=== PATIENT | female | born 1960 | race Caucasian/White ===

== ENCOUNTER 2020-10-29 20:40 | Emergency (ER) | payer BC ==
[~2020-10-29] VITALS: Ht 175.3 cm; Wt 98.3 kg
--- NOTE | 2020-10-29 21:27 | REPVR ---
PROCEDURE INFORMATION: Exam: CT Head Without Contrast Exam date and time: 10/29/2020 9:10 PM Age: 60 years old Clinical indication: Weakness, extremity; Additional info: CVA symptoms TECHNIQUE: Imaging protocol: Computed tomography of the head without contrast. Radiation optimization: All CT scans at this facility use at least one of these dose optimization techniques: automated exposure control; mA and/or kV adjustment per patient size (includes targeted exams where dose is matched to clinical indication); or iterative reconstruction. Other technique: STROKE PROTOCOL was implemented. COMPARISON: No relevant prior studies available. FINDINGS: Brain: There is mild diffuse cerebellar atrophy. Cerebral ventricles: No ventriculomegaly. Paranasal sinuses: Inflammatory changes in the left sphenoid sinus. Mastoid air cells: Visualized mastoid air cells are well aerated. Bones/joints: There is hyperostosis frontalis interna. Soft tissues: Unremarkable. IMPRESSION: 1. There is mild diffuse cerebellar atrophy. 2. Inflammatory changes in the left sphenoid sinus. 3. No acute intracranial findings. ASSESSMENT: ASPECTS ([place] Stroke Program Early CT Score) is 10. Electronically signed by: Domingo Smith On 10/29/2020 21:26:54 PM
[2020-10-29 21:29] LABS: BASO # 0.1 10^3/uL (0.0-0.2); BASO % 0.8 % (0.0-1.0); EOS # 0.2 10^3/uL (0.0-0.5); EOS % 2.1 % (0.0-3.0); HEMATOCRIT 48.4 % (36.0-47.0); LYMPH # 3.5 10^3/uL (1.5-5.0); LYMPH % 33.6 % (24.0-44.0); MEAN CORPUSCULAR HEMOGLOBIN 29.9 pg (27.0-33.0); MEAN CORPUSCULAR HGB CONC 33.1 g/dl (32.0-36.5); MEAN CORPUSCULAR VOLUME 90.5 fl (80.0-96.0); MONO # 0.8 10^3/uL (0.0-0.8); MONO % 7.6 % (2.0-8.0); NEUTROPHILS # 5.8 10^3/uL (1.5-8.5); NEUTROPHILS % 55.7 % (36.0-66.0); PLATELET COUNT, AUTOMATED 297 10^3/uL (150-450); RED BLOOD COUNT 5.35 10^6/uL (4.00-5.40); WHITE BLOOD COUNT 10.4 10^3/uL (4.0-10.0)
--- NOTE | 2020-10-29 21:38 | REPVR ---
PROCEDURE INFORMATION: Exam: XR Chest Exam date and time: 10/29/2020 9:24 PM Age: 60 years old Clinical indication: Other: CVA TECHNIQUE: Imaging protocol: XR of the chest. Views: 1 view. COMPARISON: No relevant prior studies available. FINDINGS: Lungs: Unremarkable. No consolidation. Pleural spaces: Unremarkable. No pleural effusion. No pneumothorax. Heart/Mediastinum: Unremarkable. No cardiomegaly. Bones/joints: The spine demonstrates mild degenerative changes. IMPRESSION: No acute findings. Electronically signed by: Domingo Smith On 10/29/2020 21:37:54 PM
[2020-10-29 21:39] LABS: PARTIAL THROMBOPLASTIN TIME 27.8 SECONDS (24.2-38.5)
[2020-10-29] MEDS ORDERED: ALTEPLASE 100MG VIAL IV ONE (21:45)
[2020-10-29] MEDS ORDERED: ALTEPLASE RECOMBINANT IV ONE (21:45)
[2020-10-29 22:00] VITALS: BP 151/93
[2020-10-29 22:00] LABS: CK-MB VALUE MASS < 1.0 NG/ML (<3.6); CPK CREATINE PHOSPHOKINASE 44 U/L (26-192); MB/CK RELATIVE INDEX 2.27 (< OR =4); TROPONIN I < 0.02 NG/ML (< 0.10)
[2020-10-29] MEDS ORDERED: CETI-36 PO (22:11)
[2020-10-29] MEDS ORDERED: ARIP1TAB6 PO (22:11)
[2020-10-29] MEDS ORDERED: ATOR1TAB21 PO (22:11)
[2020-10-29] MEDS ORDERED: SING10TA32 PO (22:11)
[2020-10-29] MEDS ORDERED: OMEP40CA4 PO (22:11)
[2020-10-29] MEDS ORDERED: LEXA1TAB2 PO (22:11)
[2020-10-29] MEDS ORDERED: ISOVUE-370 76% 100ML VIAL As Ordered ONE (22:23)
[2020-10-29 22:45] LABS: INR 0.95; PROTHROMBIN TIME 12.9 SECONDS (12.5-14.3)
[2020-10-29] MEDS ORDERED: SODIUM CHLORIDE 0.9% 50 ML IV ONE (22:45)
[2020-10-29] MEDS ORDERED: GASTROGRAFIN SOLUTION 30ML (Q9963) PEG ONE (23:00)
[2020-10-29 23:01] LABS: RSV AMPLIFICATION NEGATIVE (NEGATIVE)
--- NOTE | 2020-10-29 23:12 | REPVR ---
PROCEDURE INFORMATION: Exam: CT Angiography Head With Contrast, Arteriography Exam date and time: 10/29/2020 10:32 PM Age: 60 years old Clinical indication: Other: CVA TECHNIQUE: Imaging protocol: Computed tomography angiography of the head with contrast. Exam focused on the arteries. 3D rendering (Not supervised by radiologist): MIP and/or 3D reconstructed images were created by the technologist. Radiation optimization: All CT scans at this facility use at least one of these dose optimization techniques: automated exposure control; mA and/or kV adjustment per patient size (includes targeted exams where dose is matched to clinical indication); or iterative reconstruction. Contrast material: ISOVUE 370; Contrast volume: 100 ml; Contrast route: INTRAVENOUS (IV); COMPARISON: CT Head without contrast 10/29/2020 9:06 PM FINDINGS: ANTERIOR CIRCULATION: Right internal carotid artery: Unremarkable. Intracranial segment is patent with no significant stenosis. No aneurysm. Right middle cerebral artery: Unremarkable. No occlusion or significant stenosis. No aneurysm. Right anterior cerebral artery: Unremarkable. No occlusion or significant stenosis. No aneurysm. Left internal carotid artery: Unremarkable. Intracranial segment is patent with no significant stenosis. No aneurysm. Left middle cerebral artery: Unremarkable. No occlusion or significant stenosis. No aneurysm. Left anterior cerebral artery: Unremarkable. No occlusion or significant stenosis. No aneurysm. POSTERIOR CIRCULATION: Right vertebral artery: Unremarkable. No occlusion or significant stenosis. No aneurysm. Left vertebral artery: Unremarkable. No occlusion or significant stenosis. No aneurysm. Basilar artery: Unremarkable. No occlusion or significant stenosis. No aneurysm. Right posterior cerebral artery: Large patent right posterior communicating artery which is sole supply to the right posterior cerebral artery which is otherwise unremarkable. Left posterior cerebral artery: Patent left posterior communicating artery which is dominant supply to the left posterior cerebral artery which is otherwise unremarkable. Brain: No definite mass, mass effect, or midline shift. Cerebral ventricles: No ventriculomegaly. Bones/joints: Unremarkable. No acute fracture. Soft tissues: Unremarkable. Paranasal sinuses: Sphenoid sinus mucosal thickening. IMPRESSION: 1. Mild sphenoid sinus disease. 2. Otherwise negative CTA head. No significant stenosis and no occlusion. Electronically signed by: Jose Walls On 10/29/2020 23:12:47 PM
--- NOTE | 2020-10-29 23:15 | REPVR ---
PROCEDURE INFORMATION: Exam: CT Angiography Neck With Contrast Exam date and time: 10/29/2020 10:32 PM Age: 60 years old Clinical indication: Other: CVA TECHNIQUE: Imaging protocol: Computed tomography angiography of the neck with contrast. 3D rendering (Not supervised by radiologist): MIP and/or 3D reconstructed images were created by the technologist. Radiation optimization: All CT scans at this facility use at least one of these dose optimization techniques: automated exposure control; mA and/or kV adjustment per patient size (includes targeted exams where dose is matched to clinical indication); or iterative reconstruction. Contrast material: ISOVUE 370; Contrast volume: 100 ml; Contrast route: INTRAVENOUS (IV); COMPARISON: CT Head without contrast 10/29/2020 9:06 PM FINDINGS: Right common carotid artery: No stenosis. No dissection or occlusion. Right internal carotid artery: Tortuosity of the distal right extracranial internal carotid artery is noted. No stenosis. No dissection or occlusion. Right external carotid artery: No occlusion or stenosis of the origin. Left common carotid artery: No stenosis. No dissection or occlusion. Left internal carotid artery: No stenosis of the extracranial segment. No dissection or occlusion. Left external carotid artery: No occlusion or stenosis of the origin. Right vertebral artery: No stenosis. No dissection or occlusion. Left vertebral artery: No stenosis. No dissection or occlusion. Soft tissues: Normal. No significant soft tissue swelling. Bones/joints: No acute fracture. Lungs: Slight biapical interstitial coarsening. IMPRESSION: Negative CTA neck. No significant stenosis and no occlusion. REFERENCES: NASCET CRITERIA. The degree of internal carotid artery stenosis is based on NASCET criteria. Normal is no stenosis. Mild is less than 50% stenosis. Moderate is 50-69% stenosis. Severe is 70% to 99% stenosis. Total occlusion is no detectable patent lumen. Electronically signed by: Jose Walls On 10/29/2020 23:15:05 PM
--- NOTE | 2020-10-30 16:53 | ECGEPIP ---
[facility] - ED Test Date: 2020-10-29 Pat Name: CARISSA THOMAS Department: Room: - Gender: Female Intern Product Marketing Manager: [email or web address] : [id number] Requested By: CHAITANYA Dai Order Number: [id number] Reading MD: Chaitanya Abebe Measurements Intervals [place] Rate: 74 P: 9 AK: 156 QRS: 6 QRSD: 76 T: 15 QT: 384 QTc: 426 Interpretive Statements Normal sinus rhythm Nonspecific T wave abnormality Comparison tracing not on file Electronically Signed on 10-30-2020 16:53:16 EDT by Chaitanya Abebe
== END 2020-10-29 22:35 | disposition short-term general hospital (02) ==
LOC: M ED 20:40
DX: I63.9 Cerebral infarction, unspecified (principal); F33.9 Major depressive disorder, recurrent, unspecified; J01.30 Acute sphenoidal sinusitis, unspecified; Z79.899 Other long term (current) drug therapy
CPT/HCPCS: 36415; 70450; 70496; 70498; 71045; 80047; 82550; 82553; 84484; 85025; 85610; 85730; 87631; 93005; 93041; 94760; 96365; 96375; 99285; J2997; Q9967